=== PATIENT | male | born 1940 | race Caucasian/White ===

== ENCOUNTER → 2021-03-30 | Outpatient (CLI) | payer MEDICARE, OTHER, SELFPAY | END | disposition home or self-care (01) | LOC: LABSPEC 15:57 | PROVIDERS: Referring Provider Dermatology; Visit Provider Dermatology | DX: L60.9 Nail disorder, unspecified (principal); L03.011 Cellulitis of right finger; D22.5 Melanocytic nevi of trunk; L82.1 Other seborrheic keratosis; D18.01 Hemangioma of skin and subcutaneous tissue; Z71.89 Other specified counseling | CPT/HCPCS: 87070; 87077; 87101; 87186; 87205 ==